=== PATIENT | female | born 1985 | race Two or more races ===

== ENCOUNTER 2018-05-03 04:56 | Emergency (ER) | payer SELFPAY, OTHER | END 2018-05-03 07:49 | disposition home or self-care (01) | LOC: M ED 04:56 | DX: M25.561 Pain in right knee (principal); F17.200 Nicotine dependence, unspecified, uncomplicated | CPT/HCPCS: 73564 ==

== ENCOUNTER 2018-05-03 10:19 | Emergency (ER) | payer SELFPAY, OTHER ==
[2018-05-03] MEDS: KETOROLAC 60 MG/2 ML VIAL (J1885) IM (12:52)
[2018-05-03 13:01] LABS: BASO # 0.1 10^3/uL (0.0-0.2); BASO % 0.6 % (0.0-1.0); EOS % 0.4 % (0.0-3.0); HEMATOCRIT 45.7 % (36.0-47.0); HEMOGLOBIN 15.4 g/dl (12.0-15.5); IMMATURE GRANULOCYTE % 0.4 % (0-3.0); LYMPH # 2.2 10^3/uL (1.5-4.5); MEAN CORPUSCULAR HGB CONC 33.7 g/dl (32.0-36.5); MEAN CORPUSCULAR VOLUME 97.9 fl (80.0-96.0); MONO % 9.8 % (0.0-5.0); NEUTROPHILS # 6.8 10^3/uL (1.8-7.7); NEUTROPHILS % 66.8 % (36.0-66.0); PLATELET COUNT, AUTOMATED 225 10^3/uL (150-450); RED BLOOD COUNT 4.67 10^6/uL (4.00-5.40); RED CELL DISTRIBUTION WIDTH 11.8 % (11.5-14.5); WHITE BLOOD COUNT 10.1 10^3/uL (4.0-10.0)
[2018-05-03 13:34] LABS: ERYTHROCYTE SEDIMENTATION RATE 1 mm/hr (0-20)
[2018-05-03 15:04] LABS: ANION GAP 11 MEQ/L (8-16); BLOOD UREA NITROGEN 17 MG/DL (7-18); C REACTIVE PROTEIN QUANTITATIV 1.36 MG/DL (0.00-0.30); CALCIUM LEVEL 8.5 MG/DL (8.5-10.1); CARBON DIOXIDE LEVEL 22 MEQ/L (21-32); CHLORIDE LEVEL 104 MEQ/L (98-107); CREATININE FOR GFR 1.06 MG/DL (0.55-1.30); GLOMERULAR FILTRATION RATE > 60.0 (>60); GLUCOSE, FASTING 95 MG/DL (70-100); POTASSIUM SERUM 4.1 MEQ/L (3.5-5.1); SODIUM LEVEL 137 MEQ/L (136-145); URIC ACID 6.5 MG/DL (2.6-6.0)
== END 2018-05-03 16:14 | disposition home or self-care (01) ==
LOC: M ED 10:19
DX: S32.2XXA Fracture of coccyx, initial encounter for closed fracture (principal)
CPT/HCPCS: J1885